=== PATIENT | male | born 1960 | race Caucasian/White ===

== ENCOUNTER 2018-08-12 12:22 | Inpatient (IN) | payer OTHER ==
[2018-08-12 14:06] VITALS: BMI 16.0
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
[2018-08-12] MEDS ORDERED: IBUPROFEN 400 MG TABLET (FP) PO PRN (14:54)
[2018-08-12] MEDS ORDERED: LORazepam 1 MG TABLET PO PRN (14:54)
[2018-08-12] MEDS ORDERED: METHOCARBAMOL 500 MG TABLET PO PRN (14:54)
[2018-08-12] MEDS ORDERED: BISMUTH SUBSALICYLATE 524 MG/30 ML UD PO PRN (14:54)
[2018-08-12] MEDS ORDERED: MENTHOL/PHENOL 1 EACH UD MM PRN (14:54)
[2018-08-12] MEDS ORDERED: guaiFENesin 200 MG/10 ML 10 ML UNIT-DOSE CUPS PO PRN (14:54)
[2018-08-12] MEDS ORDERED: MAGNESIUM CITRATE 300 ML BOTTLE PO PRN (14:54)
[2018-08-12] MEDS ORDERED: MELATONIN 5 MG TABLETS PO PRN (14:54)
[2018-08-12] MEDS ORDERED: NICOTINE POLACRILEX 2 MG GUM BUC PRN (14:54)
[2018-08-12] MEDS ORDERED: MAGNESIUM HYDROX 2400MG/30ML ORAL SUSPENSION 30 ML CUP PO PRN (14:54)
[2018-08-12] MEDS ORDERED: ACETAMINOPHEN 325 MG TABLET (FP) PO PRN ×2 (14:54)
[2018-08-12] MEDS ORDERED: MAG HYDROX/AL HYDROX/SIMETH 30 ML UNIT-DOSE CUP PO PRN (14:54)
[2018-08-12] MEDS ORDERED: BACITRACIN 0.9 GM PACKET TP ONE (16:45)
[2018-08-12] MEDS: LORazepam 2 MG TABLET PO SCH ×2 (18:02→23:08)
[2018-08-12 18:06] VITALS: BP 174/87; PULSE 75; TEMP 97.3
[2018-08-12] MEDS: CLINDAMYCIN HCL 150 MG CAPSULE (FP) PO SCH ×2 (19:46→23:51)
[2018-08-12] MEDS ORDERED: INSULIN (NOVOLOG) ASPART 100 UNITS/ML 10ML VIAL SQ ONE (20:21)
--- NOTE | 2018-08-12 20:21 | PN ---
[facility] Progress Note Note: Vital Signs Temperature 97.3 F L 08/12/18 18:04 Pulse Rate 75 08/12/18 18:04 Respiratory Rate 18 08/12/18 18:04 Blood Pressure 174/87 H 08/12/18 18:04 O2 Sat by Pulse Oximetry (%) Call received from LUIS Daniel patient is catatonic, spaced out, lethargic, weak difficult to arouse. Patient is here for alcohol detox on MMTP on 120mg. AOxPP, cachetic, lethargic, weak, difficult to arouse EENT WNL dry mucous membranes s1 s2 No adventitious breath sounds skin intact, poor skin turgor dx: severe lethargy BGM 483 novolog 8 units given Patient transferred to [facility] for further evaluation, transported via [facility], attents to endorse patient at [facility] made with no success.
[2018-08-12] MEDS ORDERED: INSULIN SLIDING SCALE (NOVOLOG) 1 VIAL SQ ONE (20:36)
[2018-08-12] MEDS ORDERED: THIAMINE HCL 100 MG TABLET (FP) PO SCH (22:00)
--- NOTE | 2018-08-13 09:12 | DS ---
[facility] Detox Discharge Summary Admission Date: 08/12/18 Discharge Date: 08/13/18 - History Present History: Alcohol Dependence - Physical Exam Results Vital Signs: Vital Signs Temperature 97.3 F L 08/12/18 18:04 Pulse Rate 75 08/12/18 18:04 Respiratory Rate 18 08/12/18 18:04 Blood Pressure 174/87 H 08/12/18 18:04 O2 Sat by Pulse Oximetry (%) - Treatment Hospital Course: Detox Protocol Followed, Detoxed Safely, Responded well, Discharged Condition Good, Rehab Referral Accepted - Medication Discharge Medications: Ambulatory Orders Clindamycin [Cleocin -] 450 mg PO Q6H 08/12/18 Methadone [Dolophine -] 120 mg PO DAILY 08/12/18 - Diagnosis (1) Hepatic encephalopathy Status: Chronic (2) Diabetes mellitus Status: Chronic Qualifiers: Diabetes mellitus type: type 1 (3) Hepatitis C, chronic Status: Chronic (4) Alcohol dependence with uncomplicated withdrawal Status: Chronic (5) Cachectic Status: Acute (6) Lesion of lower extremity Status: Acute (7) Anemia Status: Chronic Qualifiers: Anemia type: unspecified type Qualified Code(s): D64.9 - Anemia, unspecified (8) Asthma Status: Chronic Qualifiers: Asthma severity: mild Asthma persistence: intermittent Asthma complication type: uncomplicated Qualified Code(s): J45.20 - Mild intermittent asthma, uncomplicated (9) HTN (hypertension) Status: Chronic Qualifiers: Hypertension type: essential hypertension Qualified Code(s): I10 - Essential (primary) hypertension (10) Opioid dependence on agonist therapy Status: Chronic - AMA Did Patient Leave Against Medical Advice: No (pt sent to [facility] ED and was admitted. )
[2018-08-13] MEDS ORDERED: NICOTINE 14 MG/24 HOURS TOPICAL PATCH TD SCH (10:00)
[2018-08-13] MEDS ORDERED: PRENATAL VITAMINS W/ FOLIC ACID TABLET (FP) PO SCH (10:00)
[2018-08-13] MEDS ORDERED: LORazepam 1 MG TABLET PO SCH (17:00)
[2018-08-14] MEDS ORDERED: LORazepam 0.5 MG TABLET PO PRN (17:00)
[2018-08-14] MEDS ORDERED: LORazepam 0.5 MG TABLET PO SCH (17:00)
== END 2018-08-13 08:39 | disposition short-term general hospital (02) | DRG 773 ==
LOC: YASAS 12:22 → EDBD 12:22 → Y6N 16:44
PROVIDERS: ADMIT Surgery; ATTEND Surgery
PROC: HZ2ZZZZ Detoxification Services for Substance Abuse Treatment (ICD-10-PCS; principal; 2018-08-12)
DX: F10.230 Alcohol dependence with withdrawal, uncomplicated (principal); F11.20 Opioid dependence, uncomplicated; I10 Essential (primary) hypertension; K21.9 Gastro-esophageal reflux disease without esophagitis; D64.9 Anemia, unspecified; J45.20 Mild intermittent asthma, uncomplicated; K72.91 Hepatic failure, unspecified with coma; E11.9 Type 2 diabetes mellitus without complications; B18.2 Chronic viral hepatitis C; R64 Cachexia; L98.8 Other specified disorders of the skin and subcutaneous tissue; R53.83 Other fatigue; Z88.5 Allergy status to narcotic agent; Z59.0 Homelessness
CPT/HCPCS: 82962

== ENCOUNTER 2018-08-12 21:06 | Inpatient (IN) | payer OTHER ==
[2018-08-12 22:19] VITALS: TEMP 98.1; BMI 25.7
[2018-08-12] MEDS ORDERED: SODIUM CHLORIDE 0.9% 1000 ML INFUS.BAG IV ONE (22:30)
[2018-08-12] MEDS ORDERED: NALOXONE HCL 0.4 MG/ML VIAL IVPUSH ONE (22:52)
[2018-08-12] MEDS ORDERED: ONDANSETRON 4 MG/2 ML VIAL IVPUSH ONE (22:52)
[2018-08-12] MEDS ORDERED: NALOXONE HCL 0.4 MG/ML VIAL ONE (22:59)
[2018-08-12] MEDS ORDERED: ONDANSETRON 4 MG/2 ML VIAL ONE (23:00)
[2018-08-12 23:10] LABS: PH,URINE 5.5 (5.0-8.0); URINE APPEARANCE CLEAR; URINE BILIRUBIN NEGATIVE (NEGATIVE); URINE COLOR YELLOW; URINE GLUCOSE (UA) 3+ (NEGATIVE); URINE KETONE NEGATIVE (NEGATIVE); URINE LEUK ESTERASE NEGATIVE (NEGATIVE); URINE NITRITE NEGATIVE (NEGATIVE); URINE PROTEIN NEGATIVE (NEGATIVE)
[2018-08-12 23:42] LABS: BASO % 0.3 % (0-2.0); EOS % 0.7 % (0-4.5); HEMATOCRIT 34.7 % (35.4-49); HEMOGLOBIN 11.9 GM/dL (11.7-16.9); MCH 32.5 pg (25.7-33.7); MCHC 34.4 g/dl (32.0-35.9); MEAN CELL VOLUME 94.3 fl (80-96); MEAN PLT VOLUME 9.2 fl (7.5-11.1); MONO % 8.5 % (3.8-10.2); NEUT % 55.5 % (42.8-82.8); PLATELET COUNT 53 K/MM3 (134-434); RBC 3.68 M/mm3 (4.00-5.60); RDW 14.9 % (11.9-15.9); WHITE BLOOD COUNT 4.6 K/mm3 (4.0-10.0)
[2018-08-13 00:02] LABS: VENOUS PC02 45.4 mmHg (41-51); VENOUS PH 7.43 (7.31-7.41); VENOUS PO2 91.8 mmHg (30-40)
[2018-08-13 00:10] LABS: ALBUMIN 2.7 g/dl (3.4-5.0); ALK PHOS 170 U/L (45-117); ANION GAP 6 MMOL/L (8-16); BILIRUBIN,TOTAL 0.6 mg/dL (0.2-1); BLOOD UREA NITROGEN 14 mg/dL (7-18); CALCIUM 8.3 mg/dL (8.5-10.1); CHLORIDE 104 mmol/L (98-107); CO2 31 mmol/L (21-32); CREATININE 0.7 mg/dL (0.55-1.3); POTASSIUM 3.4 mmol/L (3.5-5.1); SGOT/AST 40 U/L (15-37); SGPT/ALT 55 U/L (13-61); SODIUM 141 mmol/L (136-145); TOT PROT 6.1 g/dl (6.4-8.2)
[2018-08-13] MEDS ORDERED: LACTULOSE 20 GM/30 ML UDC (FOR ORAL USE ONLY) PO ONE (00:22)
[2018-08-13 00:40] LABS: COCAINE, UR NEGATIVE ng/ml (CUTOFF=300); OPIATES, URI NEGATIVE ng/ml (CUTOFF=300); PHENCYCLIDINE,URINE NEGATIVE ng/ml (CUTOFF=25); URINE AMPHETAMINES NEGATIVE ng/ml (CUTOFF=500); URINE BARBITURATES NEGATIVE ng/ml (CUTOFF=200); URINE BENZODIAZEPINES NEGATIVE ng/ml (CUTOFF=200)
[2018-08-13 00:45] LABS: METHADONE, UR POSITIVE ng/ml (CUTOFF=300)
[2018-08-13 00:46] LABS: GLUCOSE,RANDOM 309 mg/dL (74-106)
[2018-08-13] MEDS ORDERED: LACTULOSE 20 GM/30 ML UDC (FOR ORAL USE ONLY) ONE (00:47)
[2018-08-13] MEDS ORDERED: KCL 10 MEQ IVPB 10 MEQ/100 ML INFUS.BAG IVPB ONE ×4 (01:50→07:45)
--- NOTE | 2018-08-13 02:04 | PDOC ---
Documentation entered by Edwin Toledo SCRIBE, acting as scribe for Kemi Alexandre DO. Kemi Alexandre DO: This documentation has been prepared by the Paris payne Nirvannie, SCRIBE, under my direction and personally reviewed by me in its entirety. I confirm that the documentation accurately reflects all work, treatment, procedures, and medical decision making performed by me. History of Present Illness - General Chief Complaint: Blood Sugar Problem Stated Complaint: HIGH SUGAR Time Seen by Provider: 08/12/18 22:28 History Source: Patient Exam Limitations: Clinical Condition - History of Present Illness Initial Comments: 08/12/18 23:59 The patient is a 58 year old male, with a significant past medical history of Polysubstance abuse (alcohol, heroin, and marijuana), HTN, DM II (insulin dependent), Anemia, Asthma, GERD, Hep C, arthritis, and Depression, who presents to the emergency department via EMS from [facility] with, hyperglycemia and altered mental status. While in the ED, patient is only alert to painful stimuli and cannot aid with history thus, was obtained via EMR. Allergies: Codeine and diphenhydramine. Social History: [facility] [place]. Polysubstance abuse. Homeless. Past History - Past Medical History Allergies/Adverse Reactions: Allergies Allergy/AdvReac Type Severity Reaction Status Date / Time codeine Allergy Verified 08/12/18 22:19 diphenhydramine Allergy Verified 08/12/18 22:19 [From Benadryl] Home Medications: Ambulatory Orders Clindamycin [Cleocin -] 450 mg PO Q6H 08/12/18 Methadone [Dolophine -] 120 mg PO DAILY 08/12/18 Anemia: Yes Asthma: Yes Cancer: No Cardiac Disorders: No CVA: No COPD: No CHF: No Dementia: No Diabetes: Yes GI Disorders: Yes (GERD ) Disorders: No HTN: Yes Hypercholesterolemia: No Kidney Stones: No Liver Disease: Yes (Hep C ) Seizures: No Thyroid Disease: No - Surgical History Abdominal Surgery: No Appendectomy: Yes Cardiac Surgery: No Cholecystectomy: No Lung Surgery: No Neurologic Surgery: No Orthopedic Surgery: No - Reproductive History Testicular Surgery: No - Suicide/Smoking/Psychosocial Hx Smoking History: Unknown if ever smoked Have you smoked in the past 12 months: No Number of Cigarettes Smoked Daily: 3 Information on smoking cessation initiated: No 'Breaking Loose' booklet given: 08/12/18 Hx Alcohol Use: Yes Drug/Substance Use Hx: Yes Substance Use Type: Alcohol Hx Substance Use Treatment: Yes (Detox [facility] 1989) Review of Systems - Review of Systems Able to Perform ROS?: No Comments:: 08/12/18 23:59 Unable to perform ROS secondary to clinical condition. *Physical Exam - Vital Signs Last Vital Signs Temp Pulse Resp BP Pulse Ox 98.1 F 81 17 144/85 98 08/12/18 21:06 08/12/18 21:06 08/12/18 21:06 08/12/18 21:06 08/12/18 21:06 - Physical Exam Comments: 08/13/18 00:00 Constitutional:+Cachectic, +Thin. +Alert and responsive momentarily to sternal rub. Head: Normocephalic. Atraumatic Eyes: +Scleral icterus. +Small reactive pupils. ENT: +Dry mucus membranes. Neck: Supple. Full ROM. No lymphadenopathy. Cardiovascular: Regular rate. Regular rhythm. S1, S2 regular. Distal pulses are 2+ and symmetric. Pulmonary/Chest: No evidence of respiratory distress. Clear to auscultation bilaterally No wheezing, rales or rhonchi. Abdominal: +Palpable liver. +Dilated abdominal veins. Soft and non-distended. There is no tenderness. No rebound, guarding or rigidity. Back: No CVA tenderness. Musculoskeletal: No edema. No cyanosis. No clubbing. No calf tenderness. Radial/pedal pulses are intact and 2+ bilaterally Skin: Skin is warm and dry. No petechiae. No purpura. Neurological: Alert and responsive to sternal rub and painful stimuli momentarily. Unresponsive to verbal stimuli. Psychiatric: +Lethargic. Heart Score/ECG Review - ECG Intrepretation Comment:: 08/13/18 00:47 sinus at 69, nl axis, q waves septally that are age indeterminate, t wave inversions V3, abnl ekg ED Treatment Course - LABORATORY CBC & Chemistry Diagram: 08/12/18 23:20 08/12/18 23:20 - ADDITIONAL ORDERS Additional order review: Laboratory Results 08/12/18 22:50 Urine Color Yellow Urine Appearance Clear Urine pH 5.5 Ur Specific [place] 1.042 H Urine Protein Negative Urine Glucose (UA) 3+ H Urine Ketones Negative Urine Blood Negative Urine Nitrite Negative Urine Bilirubin Negative Urine Urobilinogen 1.0 Ur Leukocyte Esterase Negative - RADIOLOGY Radiology Studies Ordered: Category Date Time Status CHEST X-RAY PORTABLE* [RAD] Stat Radiology 08/12/18 22:52 Ordered Radiograph Interpretation: 08/13/18 02:05 EXAM: HEAD CT WITHOUT CONTRAST HISTORY: Headache COMPARISON: None. FINDINGS: The ventricular system is midline and nondilated. The sulcal pattern is normal for the patient's age. There is no bleed, mass, extra-axial fluid collection or mass effect. No skull fracture or skull lesion is identified. The visualized paranasal sinuses and mastoid air cells are clear. IMPRESSION: Normal exam. Read by: Daryl Sharpe MD Medical Decision Making - Medical Decision Making 08/12/18 23:25 a/p: 58yo male sent from [facility] for altered ms and elevated bg -pt arrives responsive to painful stimuli -responds momentarily to sternal rub -pt with small pupils which are reactive, hx of heroin use -pt arrives cachectic, dilated veins to abd -hx of hep c -concern for hyperglycemia, hepatic encephalopathy, renal failure, dka, heroin use -will send labs -rectal temp -head ct -ua, ucx -cultures -lactate, ammonia -ekg, cxr -will monitor and reassess 08/12/18 23:29 rectal temp neg for fever pt more awake, urinated, combative will continue to monitor 08/13/18 00:45 pt with elevated ammonia altered ms lactulose ordered elevated lactate +methadone 01:55 Hospitalist accepted admission. Case signed out to [place] resident Dr. Kerwin Voss. Agreed to take over remainder of care including but not limited to labs and further ancillary studies. 08/13/18 01:59 [facility] 08/13/18 02:[address] does not show acute findings *DC/Admit/Observation/Transfer Diagnosis at time of Disposition: Diabetes mellitus, Hepatitis C, chronic, Hepatic encephalopathy - Discharge Dispostion Condition at time of disposition: Guarded Decision to Admit order: Yes - Referrals - Patient Instructions - Post Discharge Activity - Attestations Physician Attestion: 08/13/18 02:00 Dr. Kemi Hall, DO, attest that this document has been prepared under my direction and personally reviewed by me in its entirety. I further attest, that it accurately reflects all work, treatment, procedures and medical decision -making performed by me.
[2018-08-13] MEDS: KCL 10 MEQ IVPB 10 MEQ/100 ML INFUS.BAG IVPB SCH ×5 (02:30→08:45)
[2018-08-13] MEDS ORDERED: LACTULOSE 20 GM/30 ML UDC (FOR ORAL USE ONLY) PO PRN (02:34)
[2018-08-13] MEDS ORDERED: DEXTROSE 5%-NORMAL SALINE 1,000 ML IV SCH (02:45)
--- NOTE | 2018-08-13 02:56 | HP ---
CHIEF COMPLAINT: AMS, hyperglycemia PCP: HISTORY OF PRESENT ILLNESS: Patient is a 58 y/o M w/ PMHx polysubstance abuse (cannabis, EtOH, heroin), HTN , IDDM, anemia, asthma, GERD, hepatitis C, arthritis, depression, presents from [facility] w/ hyperglycemia and AMS. On presentation and at time of encounter, Pt is extremely lethargic, only briefly alerting to sternal rub, non-verbal, and unable to contribute anything to history. Afebrile w/ stable vitals on presentation. Labs significant for thrombocytopenia to 53, K 3.4, glucose 304, AST/ALT 40/55, NH4 50, otherwise wnl. CXR negative, head CT negative, abd US showing nodular liver per bedside read, official read pending. Given potassium repletion, lactulose, and NS bolus in ED. Recent Travel: unknown PAST MEDICAL HISTORY: as per HPI PAST SURGICAL HISTORY: unknown Social History: as per HPI Family History: Allergies codeine Allergy (Verified 08/12/18 22:19) diphenhydramine [From Benadryl] Allergy (Verified 08/12/18 22:19) HOME MEDICATIONS: Home Medications Medication Instructions Recorded Clindamycin [Cleocin -] 450 mg PO Q6H 08/12/18 Methadone [Dolophine -] 120 mg PO DAILY 08/12/18 REVIEW OF SYSTEMS unable to obtain PHYSICAL EXAMINATION Vital Signs - 24 hr 08/12/18 21:06 Temperature 98.1 F Pulse Rate 81 Respiratory 17 Rate Blood Pressure 144/85 O2 Sat by Pulse 98 Oximetry (%) GENERAL: Lethargic, briefly alerts to sternal rub, pronounced cachexia HEENT: NC/AT, temporal wasting, small sluggish pupils, dry MM LUNGS: anterior christy w/o appreciable adventitious sounds, otherwise could not obtain d/t non-compliance HEART: RRR no m/r/g ABDOMEN: scaphoid abdomen w/ dilated tortuous vessels, no fluid wave, no tenderness response on deep palpation EXTREMITIES: 2+ pulses, warm, well-perfused. No apparent calf tenderness. No peripheral edema. NEUROLOGICAL: could not obtain PSYCHIATRIC: could not obtain SKIN: Warm, dry, normal turgor, no rashes or lesions noted, normal capillary refill. Laboratory Results - last 24 hr 08/12/18 08/12/18 08/12/18 22:50 23:20 23:20 WBC 4.6 RBC 3.68 L Hgb 11.9 Hct 34.7 L MCV 94.3 MCH 32.5 MCHC 34.4 RDW 14.9 Plt Count 53 L MPV 9.2 Absolute Neuts (auto) 2.5 Neutrophils % 55.5 Lymphocytes % 35.0 Monocytes % 8.5 Eosinophils % 0.7 Basophils % 0.3 Nucleated RBC % 0 PTT (Actin FS) 29.7 VBG pH POC VBG pCO2 POC VBG pO2 VBG HCO3 VBG O2 Sat (Aaliyah) VBG Base Excess Sodium Potassium Chloride Carbon Dioxide Anion Gap BUN Creatinine Creat Clearance w eGFR Random Glucose Lactic Acid Calcium Magnesium Total Bilirubin AST ALT Alkaline Phosphatase Ammonia Creatine Kinase Troponin I Total Protein Albumin Urine Color Yellow Urine Appearance Clear Urine pH 5.5 Ur Specific [place] 1.042 H Urine Protein Negative Urine Glucose (UA) 3+ H Urine Ketones Negative Urine Blood Negative Urine Nitrite Negative Urine Bilirubin Negative Urine Urobilinogen 1.0 Ur Leukocyte Esterase Negative Opiates Screen Methadone Screen Barbiturate Screen Phencyclidine Screen Ur Amphetamines Screen MDMA (Ecstasy) Screen Benzodiazepines Screen Cocaine Screen U Marijuana (THC) Screen Acetone, Qual 08/12/18 08/12/18 08/12/18 23:20 23:20 23:20 WBC RBC Hgb Hct MCV MCH MCHC RDW Plt Count MPV Absolute Neuts (auto) Neutrophils % Lymphocytes % Monocytes % Eosinophils % Basophils % Nucleated RBC % PTT (Actin FS) VBG pH 7.43 H POC VBG pCO2 45.4 POC VBG pO2 91.8 H VBG HCO3 29.8 H VBG O2 Sat (Aaliyah) 97.5 H VBG Base Excess 5.2 H Sodium 141 Potassium 3.4 L Chloride 104 Carbon Dioxide 31 Anion Gap 6 L BUN 14 Creatinine 0.7 Creat Clearance w eGFR 115.83 Random Glucose 309 H* Lactic Acid 2.2 H* Calcium 8.3 L Magnesium 2.0 Total Bilirubin 0.6 AST 40 H ALT 55 Alkaline Phosphatase 170 H Ammonia Creatine Kinase 50 Troponin I < 0.02 Total Protein 6.1 L Albumin 2.7 L Urine Color Urine Appearance Urine pH Ur Specific [place] Urine Protein Urine Glucose (UA) Urine Ketones Urine Blood Urine Nitrite Urine Bilirubin Urine Urobilinogen Ur Leukocyte Esterase Opiates Screen Methadone Screen Barbiturate Screen Phencyclidine Screen Ur Amphetamines Screen MDMA (Ecstasy) Screen Benzodiazepines Screen Cocaine Screen U Marijuana (THC) Screen Acetone, Qual 08/12/18 08/12/18 08/12/18 23:20 23:20 23:30 WBC RBC Hgb Hct MCV MCH MCHC RDW Plt Count MPV Absolute Neuts (auto) Neutrophils % Lymphocytes % Monocytes % Eosinophils % Basophils % Nucleated RBC % PTT (Actin FS) VBG pH POC VBG pCO2 POC VBG pO2 VBG HCO3 VBG O2 Sat (Aaliyah) VBG Base Excess Sodium Potassium Chloride Carbon Dioxide Anion Gap BUN Creatinine Creat Clearance w eGFR Random Glucose Lactic Acid Calcium Magnesium Total Bilirubin AST ALT Alkaline Phosphatase Ammonia 50.20 H Creatine Kinase Troponin I Total Protein Albumin Urine Color Urine Appearance Urine pH Ur Specific [place] Urine Protein Urine Glucose (UA) Urine Ketones Urine Blood Urine Nitrite Urine Bilirubin Urine Urobilinogen Ur Leukocyte Esterase Opiates Screen Negative Methadone Screen Positive A* Barbiturate Screen Negative Phencyclidine Screen Negative Ur Amphetamines Screen Negative MDMA (Ecstasy) Screen Negative Benzodiazepines Screen Negative Cocaine Screen Negative U Marijuana (THC) Screen Negative Acetone, Qual Negative ASSESSMENT/PLAN: 58 y/o M w/ PMHx polysubstance abuse (cannabis, EtOH, heroin), HTN, IDDM, anemia , asthma, GERD, hepatitis C, arthritis, depression, presents from [facility] w/ hyperglycemia and AMS #A: -head CT negative -abd US pending -likely hepatic encephalopathy 2/2 cirrhosis -no anion gap, no acidosis -H/H stable -BP within acceptable limits -no active respiratory issues #P: -cont lactulose, begin Rifaximin -GI consulted -cont K repletion -f/u cultures -repeat lactic acid -D5NS @ 75 cc/hr -monitor CMP, Mg, Phos -NPO -Lovenox for DVT PPx -full code -admit to med/surg Visit type - Emergency Visit Emergency Visit: Yes ED Registration Date: 08/13/18 Care time: The patient presented to the Emergency Department on the above date and was hospitalized for further evaluation of their emergent condition. - New Patient This patient is new to me today: Yes Date on this admission: 08/13/18 - Critical Care Critical Care patient: No
--- NOTE | 2018-08-13 03:10 | PN ---
Teaching Attending Note Name of Resident: Kerwin Voss ATTENDING PHYSICIAN STATEMENT I saw and evaluated the patient. I reviewed the resident's note and discussed the case with the resident. I agree with the resident's findings and plan as documented. SUBJECTIVE: Patient is a 58 year old man with a PMH of Polysubstance abuse (alcohol, heroin , and marijuana), on methadone?, HTN, DM II (insulin dependent), Anemia, Asthma , GERD, Hep C, arthritis, and Depression, who presents to the ER via EMS from [facility] with, hyperglycemia and altered mental status. While in the ED, patient is only alert to painful stimuli and cannot aid with history thus, was obtained via EMR. Even when he is woken up, he is unable to provide any information. He got Narcan in the ER to no effect. OBJECTIVE: Lethargic Vital Signs Period Temp Pulse Resp BP Sys/Steiner Pulse Ox Last 24 Hr 98.1 F 81 17 144/85 98 HEENT: No Jaundice, eye redness or discharge, PERRLA, EOMI. Normocephalic, atraumatic. External ears are normal and hearing is grossly intact. No nasal discharge. Neck: Supple, nontender. No palpable adenopathy or thyromegaly. No JVD Chest: Good effort. Clear to auscultation and percussion. Heart: Regular. No S3, rub or murmur Abdomen: Not distended, soft, nontender and no HSM. Dilated veins. No rebound or guarding. Normal bowel sounds. Ext: Peripheral pulses intact. No leg edema. Skin: Warm and dry. No petechiae, rash or ecchymosis. Neuro: Lethargic. Withdraws to painful stimuli. Sensation grossly intact in all four extremities and DTR are symmetric. Psych: Unable to assess Current Medications Generic Name Dose Route Start Last Admin Trade Name Freq PRN Reason Stop Dose Admin Enoxaparin Sodium 40 mg 08/13/18 10:00 Lovenox - SQ DAILY [facility] Dextrose/Sodium Chloride 1,000 mls @ 75 mls/hr 08/13/18 02:45 D5-Ns - IV ASDIR [facility] Potassium Chloride 10 meq in 100 mls @ 100 mls/hr 08/13/18 02:45 Potassium Chloride 10 Meq Premix Ivpb - IVPB 08/13/18 05:44 Q60M [facility] Insulin Aspart 1 vial 08/13/18 07:00 Novolog Vial Sliding Scale - SQ ACHS [facility] Protocol Lactulose 30 gm 08/13/18 02:34 Cephulac (Oral Use) PO QID PRN CONSTIPATION Rifaximin 550 mg 08/13/18 10:00 Xifaxan - PO BID [facility] Home Medications Medication Instructions Recorded Clindamycin [Cleocin -] 450 mg PO Q6H 08/12/18 Methadone [Dolophine -] 120 mg PO DAILY 08/12/18 Abnormal Lab Results 08/12/18 08/12/18 08/12/18 22:50 23:20 23:20 RBC 3.68 L Hct 34.7 L Plt Count 53 L VBG pH 7.43 H POC VBG pO2 91.8 H VBG HCO3 29.8 H VBG O2 Sat (Aaliyah) 97.5 H VBG Base Excess 5.2 H Potassium Anion Gap Random Glucose Lactic Acid Calcium AST Alkaline Phosphatase Ammonia Total Protein Albumin Ur Specific [place] 1.042 H Urine Glucose (UA) 3+ H Methadone Screen 08/12/18 08/12/18 08/12/18 23:20 23:20 23:20 RBC Hct Plt Count VBG pH POC VBG pO2 VBG HCO3 VBG O2 Sat (Aaliyah) VBG Base Excess Potassium 3.4 L Anion Gap 6 L Random Glucose 309 H* Lactic Acid 2.2 H* Calcium 8.3 L AST 40 H Alkaline Phosphatase 170 H Ammonia 50.20 H Total Protein 6.1 L Albumin 2.7 L Ur Specific [place] Urine Glucose (UA) Methadone Screen 08/12/18 23:30 RBC Hct Plt Count VBG pH POC VBG pO2 VBG HCO3 VBG O2 Sat (Aaliyah) VBG Base Excess Potassium Anion Gap Random Glucose Lactic Acid Calcium AST Alkaline Phosphatase Ammonia Total Protein Albumin Ur Specific [place] Urine Glucose (UA) Methadone Screen Positive A* ASSESSMENT AND PLAN: 1. Altered mental status - No acute abnormality on head CT. Hepatic encephalopathy is the likely cause, though drug intoxication may be contributing. Liver disease may explain lactic acidosis - no other evidence of severe infection. Will monitor lactic acid, do swallow evaluation before giving PO lactulose and rifaximin. Will give lactulose per rectum if he can't swallow. Getting IV NS. Results of abdominal sonogram pending. Check serum Mg and give IV KCL. Thrombocytopenia likely due to liver disease. Will monitor daily and avoid heparin. 2. Hypoalbuminemia - Possibly due to combined effects of malnutrition and inflammation associated with comorbid chronic conditions. Will ensure adequate dietary protein intake and also consult avionics systems engineer. 3. Uncontrolled DM Not in DKA. Will correct hypokalemia before giving insulin. Will hold the home diabetes drugs and implement sliding scale insulin regimen. Provide comprehensive diabetes care with patient teaching and counseling about the importance of adherence to prescribed diabetes regimen, euglycemia, eye care and foot care. 4. Polysubstance abuse - Monitor for withdrawal and do neurochecks. Implement seizure, fall and aspiration precautions. Counseled patient about abstaining from illicit drugs. Will consult habilitation specialist and refer to drug detox upon discharge. 5. Hypertension - No outpatient antihypertensive drugs listed. Will give lisinopril and HCTZ. Nonpharmacologic measures to control hypertension like weight loss, salt restriction and exercise discussed. 6. DVT prophylaxis - SCDs, TEDS. 7. Advance directives - Full code
[2018-08-13] MEDS ORDERED: INSULIN SLIDING SCALE (NOVOLOG) 1 VIAL SQ SCH (07:00)
[2018-08-13] MEDS ORDERED: INSULIN (NOVOLOG) ASPART 100 UNITS/ML 10ML VIAL ONE (07:21)
[2018-08-13 07:52] VITALS: BP 170/91; PULSE 88
[2018-08-13] MEDS ORDERED: FOLIC ACID INJECTION - 1 MG, THIAMINE HCL 100 MG, MULTIVIT INJECTION ADULT 10 ML in SOD... IVPB ONE (08:00)
[2018-08-13 09:01] LABS: BASO % 0.6 % (0-2.0); EOS % 0.8 % (0-4.5); HEMATOCRIT 38.6 % (35.4-49); HEMOGLOBIN 13.3 GM/dL (11.7-16.9); LYMPH % 21.5 % (8-40); MCH 32.5 pg (25.7-33.7); MCHC 34.5 g/dl (32.0-35.9); MEAN CELL VOLUME 94.3 fl (80-96); MEAN PLT VOLUME 8.8 fl (7.5-11.1); MONO % 7.1 % (3.8-10.2); PLATELET COUNT 46 K/MM3 (134-434); RDW 14.5 % (11.9-15.9); WHITE BLOOD COUNT 4.7 K/mm3 (4.0-10.0)
[2018-08-13 09:26] LABS: MAGNESIUM 1.8 mg/dL (1.8-2.4); PHOSPHOROUS 2.3 mg/dL (2.5-4.9)
[2018-08-13] MEDS ORDERED: RIFAXIMIN 550 MG TABLET (UD) PO SCH (10:00)
[2018-08-13] MEDS ORDERED: LACTULOSE 20 GM/30 ML UDC (FOR ORAL USE ONLY) PO SCH (10:00)
[2018-08-13] MEDS ORDERED: ENOXAPARIN NA (PORCINE) 40 MG/0.4 ML DISP.SYRIN SQ SCH (10:00)
[2018-08-13 10:09] LABS: INR 1.11 (0.83-1.09); PROTHROMBIN TIME (PATIENT) 13.1 SEC (9.7-13.0)
--- NOTE | 2018-08-13 10:33 | CONSULT ---
Admitting History and Physical - Primary Care Physician PCP: Britt Hopkins - Admission History of Present Illness: Per EMR- Patient is a 58 year old man with a PMH of Polysubstance abuse (alcohol, heroin , and marijuana), on methadone?, HTN, DM II (insulin dependent), Anemia, Asthma , GERD, Hep C, arthritis, and Depression, who presents to the ER via EMS from [facility] with, hyperglycemia and altered mental status. While in the ED, patient is only alert to painful stimuli and cannot aid with history thus, was obtained via EMR. Even when he is woken up, he is unable to provide any information. He got Narcan in the ER to no effect. Chart reviewed. Pt eloped before assessment. Pt reportedly tolerated diet this am. - Smoking History Smoking history: Unknown if ever smoked Have you smoked in the past 12 months: No Aproximately how many cigarettes per day: 3 - Alcohol/Substance Use Hx Alcohol Use: Yes History - Admission Reason For Visit: DIABETES MELLITIS, HEPATIC ENCEPHALAPATHY,CACHEXIA Speech Evaluation - Communication Primary Language: KOREAN
[2018-08-13] MEDS ORDERED: METHADONE HCL 40 MG DISPERSABLE TABLET PO SCH (10:45)
--- NOTE | 2018-08-13 12:06 | EKG ---
Test Reason : Blood Pressure : / mmHG Vent. Rate : 069 BPM Atrial Rate : 069 BPM P-R Int : 138 ms QRS Dur : 088 ms QT Int : 462 ms P-R-T Axes : 072 073 070 degrees QTc Int : 495 ms NORMAL SINUS RHYTHM SEPTAL INFARCT , AGE UNDETERMINED ABNORMAL ECG NO PREVIOUS ECGS AVAILABLE Confirmed by YINA MARIE MD ([id number]) on 08/13/2018 12:06:07 PM Referred By: Confirmed By:YINA MARIE MD
--- NOTE | 2018-08-13 12:17 | DS ---
Physical Exam: SUBJECTIVE: Patient seen and examined in Emergency Department. OBJECTIVE: Vital Signs Period Temp Pulse Resp BP Sys/Steiner Pulse Ox Last 24 Hr 98.1 F 79-88 17-18 144-1748/85-92 98-100 PHYSICAL EXAM GENERAL: The patient is awake, alert to person and place, lying in bed on his side, cachectic. HEAD: Normal with no signs of trauma. EYES: PERRL, extraocular movements intact. ENT: Oropharynx clear without exudates, moist mucous membranes. NECK: Trachea midline, full range of motion, supple. LUNGS: Breath sounds equal, clear to auscultation bilaterally, no wheezes, no crackles, no accessory muscle use. HEART: Regular rate and rhythm, S1, S2 without murmur, rub or gallop. ABDOMEN: Soft, nontender, nondistended, +BS, no guarding, no rebound, no masses. EXTREMITIES: 2+ pulses, warm, no edema. NEUROLOGICAL: Normal speech, gait not observed PSYCH: Normal mood, normal affect. SKIN: Warm, dry, normal turgor, no rashes. LABS Laboratory Results - last 24 hr 08/12/18 08/12/18 08/12/18 22:50 23:20 23:20 WBC 4.6 RBC 3.68 L Hgb 11.9 Hct 34.7 L MCV 94.3 MCH 32.5 MCHC 34.4 RDW 14.9 Plt Count 53 L MPV 9.2 Absolute Neuts (auto) 2.5 Neutrophils % 55.5 Lymphocytes % 35.0 Monocytes % 8.5 Eosinophils % 0.7 Basophils % 0.3 Nucleated RBC % 0 PT with INR INR PTT (Actin FS) 29.7 VBG pH POC VBG pCO2 POC VBG pO2 VBG HCO3 VBG O2 Sat (Aaliyah) VBG Base Excess Sodium Potassium Chloride Carbon Dioxide Anion Gap BUN Creatinine Creat Clearance w eGFR Random Glucose Hemoglobin A1c % Lactic Acid Calcium Phosphorus Magnesium Total Bilirubin AST ALT Alkaline Phosphatase Ammonia Creatine Kinase Troponin I Total Protein Albumin Urine Color Yellow Urine Appearance Clear Urine pH 5.5 Ur Specific [place] 1.042 H Urine Protein Negative Urine Glucose (UA) 3+ H Urine Ketones Negative Urine Blood Negative Urine Nitrite Negative Urine Bilirubin Negative Urine Urobilinogen 1.0 Ur Leukocyte Esterase Negative Opiates Screen Methadone Screen Barbiturate Screen Phencyclidine Screen Ur Amphetamines Screen MDMA (Ecstasy) Screen Benzodiazepines Screen Cocaine Screen U Marijuana (THC) Screen Acetone, Qual 08/12/18 08/12/18 08/12/18 23:20 23:20 23:20 WBC RBC Hgb Hct MCV MCH MCHC RDW Plt Count MPV Absolute Neuts (auto) Neutrophils % Lymphocytes % Monocytes % Eosinophils % Basophils % Nucleated RBC % PT with INR INR PTT (Actin FS) VBG pH 7.43 H POC VBG pCO2 45.4 POC VBG pO2 91.8 H VBG HCO3 29.8 H VBG O2 Sat (Aaliyah) 97.5 H VBG Base Excess 5.2 H Sodium 141 Potassium 3.4 L Chloride 104 Carbon Dioxide 31 Anion Gap 6 L BUN 14 Creatinine 0.7 Creat Clearance w eGFR 115.83 Random Glucose 309 H* Hemoglobin A1c % Lactic Acid 2.2 H* Calcium 8.3 L Phosphorus Magnesium 2.0 Total Bilirubin 0.6 AST 40 H ALT 55 Alkaline Phosphatase 170 H Ammonia Creatine Kinase 50 Troponin I < 0.02 Total Protein 6.1 L Albumin 2.7 L Urine Color Urine Appearance Urine pH Ur Specific [place] Urine Protein Urine Glucose (UA) Urine Ketones Urine Blood Urine Nitrite Urine Bilirubin Urine Urobilinogen Ur Leukocyte Esterase Opiates Screen Methadone Screen Barbiturate Screen Phencyclidine Screen Ur Amphetamines Screen MDMA (Ecstasy) Screen Benzodiazepines Screen Cocaine Screen U Marijuana (THC) Screen Acetone, Qual 08/12/18 08/12/18 08/12/18 23:20 23:20 23:30 WBC RBC Hgb Hct MCV MCH MCHC RDW Plt Count MPV Absolute Neuts (auto) Neutrophils % Lymphocytes % Monocytes % Eosinophils % Basophils % Nucleated RBC % PT with INR INR PTT (Actin FS) VBG pH POC VBG pCO2 POC VBG pO2 VBG HCO3 VBG O2 Sat (Aaliyah) VBG Base Excess Sodium Potassium Chloride Carbon Dioxide Anion Gap BUN Creatinine Creat Clearance w eGFR Random Glucose Hemoglobin A1c % Lactic Acid Calcium Phosphorus Magnesium Total Bilirubin AST ALT Alkaline Phosphatase Ammonia 50.20 H Creatine Kinase Troponin I Total Protein Albumin Urine Color Urine Appearance Urine pH Ur Specific [place] Urine Protein Urine Glucose (UA) Urine Ketones Urine Blood Urine Nitrite Urine Bilirubin Urine Urobilinogen Ur Leukocyte Esterase Opiates Screen Negative Methadone Screen Positive A* Barbiturate Screen Negative Phencyclidine Screen Negative Ur Amphetamines Screen Negative MDMA (Ecstasy) Screen Negative Benzodiazepines Screen Negative Cocaine Screen Negative U Marijuana (THC) Screen Negative Acetone, Qual Negative 08/13/18 08/13/18 08/13/18 08:21 08:21 08:21 WBC 4.7 RBC 4.10 Hgb 13.3 Hct 38.6 MCV 94.3 MCH 32.5 MCHC 34.5 RDW 14.5 Plt Count 46 L MPV 8.8 Absolute Neuts (auto) 3.3 Neutrophils % 70.0 D Lymphocytes % 21.5 D Monocytes % 7.1 Eosinophils % 0.8 Basophils % 0.6 Nucleated RBC % 0 PT with INR INR PTT (Actin FS) VBG pH POC VBG pCO2 POC VBG pO2 VBG HCO3 VBG O2 Sat (Aaliyah) VBG Base Excess Sodium Potassium Chloride Carbon Dioxide Anion Gap BUN Creatinine Creat Clearance w eGFR Random Glucose Hemoglobin A1c % Lactic Acid 1.9 Calcium Phosphorus 2.3 L Magnesium 1.8 Total Bilirubin AST ALT Alkaline Phosphatase Ammonia Creatine Kinase Troponin I Total Protein Albumin Urine Color Urine Appearance Urine pH Ur Specific [place] Urine Protein Urine Glucose (UA) Urine Ketones Urine Blood Urine Nitrite Urine Bilirubin Urine Urobilinogen Ur Leukocyte Esterase Opiates Screen Methadone Screen Barbiturate Screen Phencyclidine Screen Ur Amphetamines Screen MDMA (Ecstasy) Screen Benzodiazepines Screen Cocaine Screen U Marijuana (THC) Screen Acetone, Qual 08/13/18 08/13/18 09:40 09:40 WBC RBC Hgb Hct MCV MCH MCHC RDW Plt Count MPV Absolute Neuts (auto) Neutrophils % Lymphocytes % Monocytes % Eosinophils % Basophils % Nucleated RBC % PT with INR 13.10 H INR 1.11 H PTT (Actin FS) VBG pH POC VBG pCO2 POC VBG pO2 VBG HCO3 VBG O2 Sat (Aaliyah) VBG Base Excess Sodium Potassium Chloride Carbon Dioxide Anion Gap BUN Creatinine Creat Clearance w eGFR Random Glucose Hemoglobin A1c % 9.6 H Lactic Acid Calcium Phosphorus Magnesium Total Bilirubin AST ALT Alkaline Phosphatase Ammonia Creatine Kinase Troponin I Total Protein Albumin Urine Color Urine Appearance Urine pH Ur Specific [place] Urine Protein Urine Glucose (UA) Urine Ketones Urine Blood Urine Nitrite Urine Bilirubin Urine Urobilinogen Ur Leukocyte Esterase Opiates Screen Methadone Screen Barbiturate Screen Phencyclidine Screen Ur Amphetamines Screen MDMA (Ecstasy) Screen Benzodiazepines Screen Cocaine Screen U Marijuana (THC) Screen Acetone, Qual HOSPITAL COURSE: Patient is a 58 y/o M w/ PMHx polysubstance abuse (cannabis, EtOH, heroin), HTN , IDDM, anemia, asthma, GERD, hepatitis C, arthritis, depression, presents from [facility] w/ hyperglycemia and AMS. On presentation and at time of encounter, Pt on admission was extremely lethargic, only briefly alerting to sternal rub, non-verbal, and unable to contribute anything to history. Afebrile w/ stable vitals on presentation. Labs significant for thrombocytopenia to 53, K 3.4, glucose 304, AST/ALT 40/55, NH4 50, otherwise wnl. CXR negative, head CT negative, abd US showing nodular liver per bedside read, official read pending. Given potassium repletion, lactulose, and NS bolus in ED. He was admitted for AMS and polysubstance abuse. The patient was kept NPO overnight. In the morning his mental status improved, he ate breakfast and left AMA. The risk of living the hospital against medical advice was explained to the patient. Date of Admission:08/13/18 Date of Discharge: 08/13/18 Minutes to complete discharge: 30 Discharge Summary Reason For Visit: DIABETES MELLITIS, HEPATIC ENCEPHALAPATHY,CACHEXIA Condition: Guarded - Instructions Disposition: AGAINST MEDICAL ADVICE - Home Medications Comprehensive Discharge Medication List: Ambulatory Orders Clindamycin [Cleocin -] 450 mg PO Q6H 08/12/18 Methadone [Dolophine -] 120 mg PO DAILY 08/12/18 Problem List - Problems (1) Cachectic Code(s): R64 - CACHEXIA (2) Lesion of lower extremity Code(s): L98.9 - DISORDER OF THE SKIN AND SUBCUTANEOUS TISSUE, UNSPECIFIED (3) Alcohol dependence with uncomplicated withdrawal Code(s): F10.230 - ALCOHOL DEPENDENCE WITH WITHDRAWAL, UNCOMPLICATED (4) Anemia Code(s): D64.9 - ANEMIA, UNSPECIFIED Qualifiers: Anemia type: unspecified type Qualified Code(s): D64.9 - Anemia, unspecified (5) Asthma Code(s): J45.909 - UNSPECIFIED ASTHMA, UNCOMPLICATED Qualifiers: Asthma severity: mild Asthma persistence: intermittent Asthma complication type: uncomplicated Qualified Code(s): J45.20 - Mild intermittent asthma, uncomplicated (6) Diabetes mellitus Code(s): E11.9 - TYPE 2 DIABETES MELLITUS WITHOUT COMPLICATIONS Qualifiers: Diabetes mellitus type: type 1 (7) HTN (hypertension) Code(s): I10 - ESSENTIAL (PRIMARY) HYPERTENSION Qualifiers: Hypertension type: essential hypertension Qualified Code(s): I10 - Essential (primary) hypertension (8) Hepatic encephalopathy Code(s): K72.90 - HEPATIC FAILURE, UNSPECIFIED WITHOUT COMA (9) Hepatitis C, chronic Code(s): B18.2 - CHRONIC VIRAL HEPATITIS C (10) Opioid dependence on agonist therapy Code(s): F11.20 - OPIOID DEPENDENCE, UNCOMPLICATED This patient is new to me today: Yes Date on this admission: 08/13/18 Emergency Visit: Yes ED Registration Date: 08/13/18 Care time: The patient presented to the Emergency Department on the above date and was hospitalized for further evaluation of their emergent condition. Critical Care patient: No - Discharge Referral Referred to [facility] Med [facility] No
--- NOTE | 2018-08-13 13:42 | PN ---
Teaching Attending Note Name of Resident: iDdi Chandra ATTENDING PHYSICIAN STATEMENT I saw and evaluated the patient. I reviewed the resident's note and discussed the case with the resident. I agree with the resident's findings and plan as documented with exceptions below. SUBJECTIVE: Patient seen and examined. Upset about not getting food and his methadone, no complaints. Able to state his dose 120 mg and that [place] city. Denies any pain or complaints. OBJECTIVE: Vital Signs Period Temp Pulse Resp BP Sys/Steiner Pulse Ox Last 24 Hr 98.1 F 79-88 17-18 144-1748/85-92 98-100 Intake & Output 08/10/18 08/11/18 08/12/18 08/13/18 23:59 23:59 23:59 23:59 Weight 185 lb General: sitting in bed, upset about being NPO, no acute distress Chest: no rales or wheezing Abdomen:Soft Extremities: no tremors. Home Medications Medication Instructions Recorded Clindamycin [Cleocin -] 450 mg PO Q6H 08/12/18 Methadone [Dolophine -] 120 mg PO DAILY 08/12/18 Laboratory Results - last 24 hr 08/12/18 08/12/18 08/12/18 22:50 23:20 23:20 WBC 4.6 RBC 3.68 L Hgb 11.9 Hct 34.7 L MCV 94.3 MCH 32.5 MCHC 34.4 RDW 14.9 Plt Count 53 L MPV 9.2 Absolute Neuts (auto) 2.5 Neutrophils % 55.5 Lymphocytes % 35.0 Monocytes % 8.5 Eosinophils % 0.7 Basophils % 0.3 Nucleated RBC % 0 PT with INR INR PTT (Actin FS) 29.7 VBG pH POC VBG pCO2 POC VBG pO2 VBG HCO3 VBG O2 Sat (Aaliyah) VBG Base Excess Sodium Potassium Chloride Carbon Dioxide Anion Gap BUN Creatinine Creat Clearance w eGFR Random Glucose Hemoglobin A1c % Lactic Acid Calcium Phosphorus Magnesium Total Bilirubin AST ALT Alkaline Phosphatase Ammonia Creatine Kinase Troponin I Total Protein Albumin Urine Color Yellow Urine Appearance Clear Urine pH 5.5 Ur Specific [place] 1.042 H Urine Protein Negative Urine Glucose (UA) 3+ H Urine Ketones Negative Urine Blood Negative Urine Nitrite Negative Urine Bilirubin Negative Urine Urobilinogen 1.0 Ur Leukocyte Esterase Negative Opiates Screen Methadone Screen Barbiturate Screen Phencyclidine Screen Ur Amphetamines Screen MDMA (Ecstasy) Screen Benzodiazepines Screen Cocaine Screen U Marijuana (THC) Screen Acetone, Qual 08/12/18 08/12/18 08/12/18 23:20 23:20 23:20 WBC RBC Hgb Hct MCV MCH MCHC RDW Plt Count MPV Absolute Neuts (auto) Neutrophils % Lymphocytes % Monocytes % Eosinophils % Basophils % Nucleated RBC % PT with INR INR PTT (Actin FS) VBG pH 7.43 H POC VBG pCO2 45.4 POC VBG pO2 91.8 H VBG HCO3 29.8 H VBG O2 Sat (Aaliyah) 97.5 H VBG Base Excess 5.2 H Sodium 141 Potassium 3.4 L Chloride 104 Carbon Dioxide 31 Anion Gap 6 L BUN 14 Creatinine 0.7 Creat Clearance w eGFR 115.83 Random Glucose 309 H* Hemoglobin A1c % Lactic Acid 2.2 H* Calcium 8.3 L Phosphorus Magnesium 2.0 Total Bilirubin 0.6 AST 40 H ALT 55 Alkaline Phosphatase 170 H Ammonia Creatine Kinase 50 Troponin I < 0.02 Total Protein 6.1 L Albumin 2.7 L Urine Color Urine Appearance Urine pH Ur Specific [place] Urine Protein Urine Glucose (UA) Urine Ketones Urine Blood Urine Nitrite Urine Bilirubin Urine Urobilinogen Ur Leukocyte Esterase Opiates Screen Methadone Screen Barbiturate Screen Phencyclidine Screen Ur Amphetamines Screen MDMA (Ecstasy) Screen Benzodiazepines Screen Cocaine Screen U Marijuana (THC) Screen Acetone, Qual 08/12/18 08/12/18 08/12/18 23:20 23:20 23:30 WBC RBC Hgb Hct MCV MCH MCHC RDW Plt Count MPV Absolute Neuts (auto) Neutrophils % Lymphocytes % Monocytes % Eosinophils % Basophils % Nucleated RBC % PT with INR INR PTT (Actin FS) VBG pH POC VBG pCO2 POC VBG pO2 VBG HCO3 VBG O2 Sat (Aaliyah) VBG Base Excess Sodium Potassium Chloride Carbon Dioxide Anion Gap BUN Creatinine Creat Clearance w eGFR Random Glucose Hemoglobin A1c % Lactic Acid Calcium Phosphorus Magnesium Total Bilirubin AST ALT Alkaline Phosphatase Ammonia 50.20 H Creatine Kinase Troponin I Total Protein Albumin Urine Color Urine Appearance Urine pH Ur Specific [place] Urine Protein Urine Glucose (UA) Urine Ketones Urine Blood Urine Nitrite Urine Bilirubin Urine Urobilinogen Ur Leukocyte Esterase Opiates Screen Negative Methadone Screen Positive A* Barbiturate Screen Negative Phencyclidine Screen Negative Ur Amphetamines Screen Negative MDMA (Ecstasy) Screen Negative Benzodiazepines Screen Negative Cocaine Screen Negative U Marijuana (THC) Screen Negative Acetone, Qual Negative 08/13/18 08/13/18 08/13/18 08:21 08:21 08:21 WBC 4.7 RBC 4.10 Hgb 13.3 Hct 38.6 MCV 94.3 MCH 32.5 MCHC 34.5 RDW 14.5 Plt Count 46 L MPV 8.8 Absolute Neuts (auto) 3.3 Neutrophils % 70.0 D Lymphocytes % 21.5 D Monocytes % 7.1 Eosinophils % 0.8 Basophils % 0.6 Nucleated RBC % 0 PT with INR INR PTT (Actin FS) VBG pH POC VBG pCO2 POC VBG pO2 VBG HCO3 VBG O2 Sat (Aaliyah) VBG Base Excess Sodium Potassium Chloride Carbon Dioxide Anion Gap BUN Creatinine Creat Clearance w eGFR Random Glucose Hemoglobin A1c % Lactic Acid 1.9 Calcium Phosphorus 2.3 L Magnesium 1.8 Total Bilirubin AST ALT Alkaline Phosphatase Ammonia Creatine Kinase Troponin I Total Protein Albumin Urine Color Urine Appearance Urine pH Ur Specific [place] Urine Protein Urine Glucose (UA) Urine Ketones Urine Blood Urine Nitrite Urine Bilirubin Urine Urobilinogen Ur Leukocyte Esterase Opiates Screen Methadone Screen Barbiturate Screen Phencyclidine Screen Ur Amphetamines Screen MDMA (Ecstasy) Screen Benzodiazepines Screen Cocaine Screen U Marijuana (THC) Screen Acetone, Qual 08/13/18 08/13/18 09:40 09:40 WBC RBC Hgb Hct MCV MCH MCHC RDW Plt Count MPV Absolute Neuts (auto) Neutrophils % Lymphocytes % Monocytes % Eosinophils % Basophils % Nucleated RBC % PT with INR 13.10 H INR 1.11 H PTT (Actin FS) VBG pH POC VBG pCO2 POC VBG pO2 VBG HCO3 VBG O2 Sat (Aaliyah) VBG Base Excess Sodium Potassium Chloride Carbon Dioxide Anion Gap BUN Creatinine Creat Clearance w eGFR Random Glucose Hemoglobin A1c % 9.6 H Lactic Acid Calcium Phosphorus Magnesium Total Bilirubin AST ALT Alkaline Phosphatase Ammonia Creatine Kinase Troponin I Total Protein Albumin Urine Color Urine Appearance Urine pH Ur Specific [place] Urine Protein Urine Glucose (UA) Urine Ketones Urine Blood Urine Nitrite Urine Bilirubin Urine Urobilinogen Ur Leukocyte Esterase Opiates Screen Methadone Screen Barbiturate Screen Phencyclidine Screen Ur Amphetamines Screen MDMA (Ecstasy) Screen Benzodiazepines Screen Cocaine Screen U Marijuana (THC) Screen Acetone, Qual ASSESSMENT AND PLAN: 58 polysubstance abuse (cannabis, EtOH, heroin), methadone dependence, HTN, IDDM , anemia, asthma, GERD, hepatitis C, arthritis, depression, sent from [facility] with hyperglycemic and AMS. -Hyperglycemia, suspect poorly controlled DM -AMS, from drug use vs hepatic encephalopathy -Methadone dependence -HTN -Anemia -Asthma -Hepatitis C -Arthritis -Depression Plan: Patient awake but upset and insisting on getting his methadone and food PO as tolerated, resume methadone. Lactulose ISS dc back to [place] [facility] if blood sugars better and no concerns with continued compliance/drug cessation counseling and education on need for close outpatient follow up.
== END 2018-08-13 10:45 | disposition left against medical advice (07) | DRG 279 ==
LOC: JER 21:06 → JERBED 08-13 02:04
PROVIDERS: ADMIT Internal Medicine; ATTEND Hospitalist
DX: K72.90 Hepatic failure, unspecified without coma (principal); E11.65 Type 2 diabetes mellitus with hyperglycemia; R64 Cachexia; E88.09 Other disorders of plasma-protein metabolism, not elsewhere classified; F11.20 Opioid dependence, uncomplicated; E87.6 Hypokalemia; B19.20 Unspecified viral hepatitis C without hepatic coma; F32.9 Major depressive disorder, single episode, unspecified; K21.9 Gastro-esophageal reflux disease without esophagitis; I10 Essential (primary) hypertension; F10.10 Alcohol abuse, uncomplicated; Z59.0 Homelessness; B18.2 Chronic viral hepatitis C; D64.9 Anemia, unspecified; K74.60 Unspecified cirrhosis of liver; Z79.4 Long term (current) use of insulin; F12.10 Cannabis abuse, uncomplicated
CPT/HCPCS: 36415; 70450-TC; 71045-TC-FY; 76705-TC; 80053; 80307; 81003; 82009; 82140; 82550; 82803; 83036; 83605; 83735; 84100; 84484; 85025; 85610; 85730; 87040; 87086; 93005; 93010; 99283-25; J7030